=== PATIENT | male | born 1970 | race American Indian/Alaskan Native ===

== ENCOUNTER 2019-10-04 01:12 | Emergency (ER) | payer SELFPAY ==
[2019-10-04 01:51] LABS: Basophils # (Auto) 0.2 K/mm3 (0.0-0.1); Basophils % (Auto) 1.3 % (0.0-1.8); Eosinophils # (Auto) 0.1 K/mm3 (0.0-0.4); Eosinophils % (Auto) 0.8 % (0.0-4.3); Lymphocytes # (Auto) 1.4 K/mm3 (1.2-5.4); Lymphocytes % (Auto) 11.7 % (13.4-35.0); Mean Corpuscular HGB Conc 37 % (32-34); Monocytes # (Auto) 0.8 K/mm3 (0.0-0.8); Monocytes % (Auto) 6.8 % (0.0-7.3); Platelet Count 132 K/mm3 (140-440); Red Blood Count 6.23 M/mm3 (3.65-5.03); Red Cell Distribution Width 15.1 % (13.2-15.2)
[2019-10-04 01:57] LABS: Hematocrit 40.4 % (35.5-45.6); Mean Corpuscular Volume 65 fl (84-94)
[2019-10-04 03:49] LABS: Bilirubin,Urine NEG (Negative); Blood,Urine NEG (Negative); Color,Urine Yellow (Yellow); Mucus,Urine FEW /HPF; Urobilinogen,Urine < 2.0 mg/dL (<2.0)
[2019-10-04 04:12] LABS: Blood Urea Nitrogen 10 mg/dL (9-20); Calcium 9.4 mg/dL (8.4-10.2); Hemolysis Index 252
[2019-10-04 04:24] LABS: BUN/Creatinine Ratio 50
[2019-10-04 04:25] LABS: Alanine Aminotransferase < 5 units/L (7-56)
[2019-10-04 04:28] LABS: Albumin 4.4 g/dL (3.9-5)
[2019-10-04] MEDS ORDERED: MORPHINE 4 MG/1 ML INJ IV ONE ×2 (07:22→10:27)
[2019-10-04] MEDS ORDERED: ONDANSETRON 4 MG/2 ML INJ IV ONE (07:22)
[2019-10-04] MEDS ORDERED: SODIUM CHLORIDE 0.9% 1000 ML 1,000 ML IV ONE (07:22)
--- NOTE | 2019-10-04 07:27 | Emergency Department Report ---
ED Abdominal Pain HPI - General Chief Complaint: Abdominal Pain Stated Complaint: STOMACH PAIN HEADACHE GAS PAIN Source: patient Mode of arrival: Ambulatory Limitations: No Limitations - History of Present Illness Initial Comments: This is a pleasant 32-year-old male who presents the emergency department the chief complaint of 3 days of epigastric abdominal pain that radiates to his back. Patient rates the severity of his pain is a 9 out of 10 describes as sharp and stabbing. He has a history of diabetes, pancreatitis. He reports previous episode of pancreatitis was secondary to alcohol use. He reports this feels very similar to previous episodes of pancreatitis. He currently takes 70/30 insulin and is prescribed metformin but does not take it. He denies any k nown drug allergies. He denies any previous surgeries. He denies any pain in his chest, shortness of breath, nausea, vomiting, diarrhea, melena, hematochezia, fever, chills, night sweats, headache, dizziness, blurry vision or any other associated symptoms. - Related Data Previous Rx's Medication Instructions Recorded Last Taken Type Acetaminophen with Codeine 1 each PO Q6HR #12 tablet 10/04/19 Unknown Rx [Acetaminophen-Codeine #4 TAB] Ondansetron [Zofran Odt] 4 mg PO Q8HR #21 tab.rapdis 10/04/19 Unknown Rx Allergies Allergy/AdvReac Type Severity Reaction Status Date / Time No Known Allergies Allergy Unverified 10/04/19 01:20 ED Review of Systems ROS: Stated complaint: STOMACH PAIN HEADACHE GAS PAIN Other details as noted in HPI Comment: All other systems reviewed and negative Constitutional: denies: chills, fever Eyes: denies: eye pain, eye discharge, vision change ENT: denies: ear pain, throat pain Respiratory: denies: cough, shortness of breath, wheezing Cardiovascular: denies: chest pain, palpitations Endocrine: no symptoms reported Gastrointestinal: as per HPI, abdominal pain. denies: nausea, diarrhea Genitourinary: denies: urgency, dysuria Musculoskeletal: denies: back pain, joint swelling, arthralgia Skin: denies: rash, lesions Neurological: denies: headache, weakness, paresthesias Psychiatric: denies: anxiety, depression Hematological/Lymphatic: denies: easy bleeding, easy bruising ED Past Medical Hx - Past Medical History Previous Medical History?: Yes Hx Diabetes: Yes Additional medical history: pancreatitis - Surgical History Past Surgical History?: No - Social History Smoking Status: Current Some Day Smoker Substance Use Type: Alcohol - Medications Home Medications: Home Medications Medication Instructions Recorded Confirmed Last Taken Type Acetaminophen with Codeine 1 each PO Q6HR #12 tablet 10/04/19 Unknown Rx [Acetaminophen-Codeine #4 TAB] Ondansetron [Zofran Odt] 4 mg PO Q8HR #21 tab.rapdis 10/04/19 Unknown Rx ED Physical Exam - General Limitations: No Limitations General appearance: alert, in no apparent distress - Head Head exam: Present: atraumatic, normocephalic - Eye Eye exam: Present: normal appearance, PERRL, EOMI Pupils: Present: normal accommodation - ENT ENT exam: Present: normal exam, normal orophraynx, mucous membranes dry, mucous membranes moist, normal external ear exam - Neck Neck exam: Present: normal inspection, full ROM. Absent: tenderness, meningismus - Respiratory Respiratory exam: Present: normal lung sounds bilaterally. Absent: respiratory distress, wheezes, rales, rhonchi, stridor - Cardiovascular Cardiovascular Exam: Present: regular rate, normal rhythm, normal heart sounds. Absent: systolic murmur, diastolic murmur, rubs, gallop - GI/Abdominal GI/Abdominal exam: Present: soft, tenderness (Tenderness to the epigastrium, right upper and left upper quadrant, no rebound or guarding), normal bowel sounds. Absent: guarding, rebound - Rectal Rectal exam: Present: deferred - Extremities Exam Extremities exam: Present: normal inspection - Back Exam Back exam: Present: normal inspection - Neurological Exam Neurological exam: Present: alert, oriented X3 - Psychiatric Psychiatric exam: Present: normal affect, normal mood - Skin Skin exam: Present: warm, dry, intact, normal color. Absent: rash ED Course Vital Signs 10/04/19 10/04/19 10/04/19 01:20 07:52 08:49 Temperature 99.2 F Pulse Rate 112 H 95 H 74 Respiratory 18 24 18 Rate Blood Pressure 140/98 Blood Pressure 134/69 136/71 [Right] O2 Sat by Pulse 98 100 100 Oximetry 10/04/19 10/04/19 10/04/19 08:50 09:44 10:44 Temperature Pulse Rate 93 H 93 H Respiratory 18 18 16 Rate Blood Pressure Blood Pressure 139/79 139/76 [Right] O2 Sat by Pulse 96 95 Oximetry - Reevaluation(s) Reevaluation #1: 10/04/19 10:52 Patient's pain improved. Abdominal exam was soft and no rebound or guarding. CT showed mild peripancreatic inflammation. Lipase was elevated but not quite diagnostic for acute pancreatitis. Sodium was also slightly decreased think is likely secondary to hypovolemia due to his nausea and vomiting. The repeat potassium was improved. Patient was given additional fluids. EKG showed no changes of wide complex QRS are peak T waves. I suspect this is likely just an issue of hemolysis. The patient's LFTs were slightly elevated including his alk phos. He did endorse heavy drinking this Wednesday likely resulting in his episode of pancreatitis today. Patient preferred to go home after lengthy conversation recommended clear liquid diet for the next 72 hours, we will give him oral pain medication and nausea medication and recommend he advance his diet slowly after 72 hours. I will give GI follow-up. Patient instructed to return to the ER with any changing or worsening symptoms. He verbalized understanding the diagnosis, treatment plan and follow-up instructions all of his questions were answered. ED Medical Decision Making - Lab Data Result diagrams: 10/04/19 01:30 10/04/19 Unknown Lab Results 10/04/19 10/04/19 10/04/19 Range/Units 01:30 03:04 03:18 WBC 12.1 H (4.5-11.0) K/mm3 RBC 6.23 H (3.65-5.03) M/mm3 Hgb 15.0 (11.8-15.2) gm/dl Hct 40.4 (35.5-45.6) % MCV 65 L (84-94) fl MCH 24 L (28-32) pg MCHC 37 H (32-34) % RDW 15.1 (13.2-15.2) % Plt Count 132 L (140-440) K/mm3 Lymph % (Auto) 11.7 L (13.4-35.0) % Jones % (Auto) 6.8 (0.0-7.3) % Eos % (Auto) 0.8 (0.0-4.3) % Baso % (Auto) 1.3 (0.0-1.8) % Lymph # 1.4 (1.2-5.4) K/mm3 Jones # 0.8 (0.0-0.8) K/mm3 Eos # 0.1 (0.0-0.4) K/mm3 Baso # 0.2 H (0.0-0.1) K/mm3 Seg Neutrophils % 79.4 H (40.0-70.0) % Seg Neutrophils # 9.6 H (1.8-7.7) K/mm3 Sodium 129 L (137-145) mmol/L Potassium 5.3 H (3.6-5.0) mmol/L Chloride 89.7 L (98-107) mmol/L Carbon Dioxide 22 (22-30) mmol/L Anion Gap 23 mmol/L BUN 10 (9-20) mg/dL Creatinine < 0.2 L (0.8-1.5) mg/dL Estimated GFR > 60 ml/min BUN/Creatinine Ratio 50 % Glucose 269 H (75-100) mg/dL Calcium 9.4 (8.4-10.2) mg/dL Total Bilirubin 0.40 (0.1-1.2) mg/dL AST 71 H (5-40) units/L ALT < 5 L (7-56) units/L Alkaline Phosphatase 924 H (35-129) units/L Total Protein 5.1 L (6.3-8.2) g/dL Albumin 4.4 (3.9-5) g/dL Albumin/Globulin Ratio 6.3 % Lipase (13-60) units/L Urine Color Yellow (Yellow) Urine Turbidity Clear (Clear) Urine pH 5.0 (5.0-7.0) Ur Specific Ralph 1.032 H (1.003-1.030) Urine Protein 100 mg/dl (Negative) mg/dL Urine Glucose (UA) >=500 (Negative) mg/dL Urine Ketones 80 (Negative) mg/dL Urine Blood Neg (Negative) Urine Nitrite Neg (Negative) Urine Bilirubin Neg (Negative) Urine Urobilinogen < 2.0 (<2.0) mg/dL Ur Leukocyte Esterase Tr (Negative) Urine WBC (Auto) 2.0 (0.0-6.0) /HPF Urine RBC (Auto) 3.0 (0.0-6.0) /HPF U Epithel Cells (Auto) < 1.0 (0-13.0) /HPF Urine Mucus Few /HPF 10/04/19 Range/Units Unknown WBC (4.5-11.0) K/mm3 RBC (3.65-5.03) M/mm3 Hgb (11.8-15.2) gm/dl Hct (35.5-45.6) % MCV (84-94) fl MCH (28-32) pg MCHC (32-34) % RDW (13.2-15.2) % Plt Count (140-440) K/mm3 Lymph % (Auto) (13.4-35.0) % Jones % (Auto) (0.0-7.3) % Eos % (Auto) (0.0-4.3) % Baso % (Auto) (0.0-1.8) % Lymph # (1.2-5.4) K/mm3 Jones # (0.0-0.8) K/mm3 Eos # (0.0-0.4) K/mm3 Baso # (0.0-0.1) K/mm3 Seg Neutrophils % (40.0-70.0) % Seg Neutrophils # (1.8-7.7) K/mm3 Sodium (137-145) mmol/L Potassium 5.2 H (3.6-5.0) mmol/L Chloride (98-107) mmol/L Carbon Dioxide (22-30) mmol/L Anion Gap mmol/L BUN (9-20) mg/dL Creatinine (0.8-1.5) mg/dL Estimated GFR ml/min BUN/Creatinine Ratio % Glucose (75-100) mg/dL Calcium (8.4-10.2) mg/dL Total Bilirubin (0.1-1.2) mg/dL AST (5-40) units/L ALT (7-56) units/L Alkaline Phosphatase (35-129) units/L Total Protein (6.3-8.2) g/dL Albumin (3.9-5) g/dL Albumin/Globulin Ratio % Lipase 196 H (13-60) units/L Urine Color (Yellow) Urine Turbidity (Clear) Urine pH (5.0-7.0) Ur Specific Ralph (1.003-1.030) Urine Protein (Negative) mg/dL Urine Glucose (UA) (Negative) mg/dL Urine Ketones (Negative) mg/dL Urine Blood (Negative) Urine Nitrite (Negative) Urine Bilirubin (Negative) Urine Urobilinogen (<2.0) mg/dL Ur Leukocyte Esterase (Negative) Urine WBC (Auto) (0.0-6.0) /HPF Urine RBC (Auto) (0.0-6.0) /HPF U Epithel Cells (Auto) (0-13.0) /HPF Urine Mucus /HPF - EKG Data -: EKG Interpreted by Ok EKG shows normal: sinus rhythm Rate: normal - EKG Data When compared to previous EKG there are: previous EKG unavailable 10/04/19 09:03 Normal sinus rhythm rate of [address] or T wave abnormalities, no STEMI, normal axis, normal intervals, no ectopy. - Radiology Data Radiology results: report reviewed Cat Scan Report Signed Patient: THELMA COX JR MR#: [id number] : 1970 Acct:[id number] Age/Sex: 49 / M ADM Date: 10/04/19 Loc: ED Attending Dr: Ordering Physician: SUBHASH AGUIRRE Date of Service: 10/04/19 Procedure(s): CT abdomen pelvis w con Accession Number(s): [id number] cc: SUBHASH AGUIRRE CT abdomen pelvis w con INDICATION: epigastric abdominal pain radiating to back. TECHNIQUE: All CT scans at this location are performed using the following dose modulation technique: Automated exposure control. Helical slices were obtained through the abdomen and pelvis. 100 cc of Omnipaque 300 is administered. COMPARISON: None available. FINDINGS: Abdomen: There is mild dependent atelectasis in the right base. There is mild v mirza pancreatic inflammation around the head of the pancreas suspicious for pancreatitis. There is some inflammation adjacent to the tail of the pancreas and to the splenic flexure of the colon. I suspect that this represents pancreatitis with secondary involvement of the colon. The possibility that this could represent diverticulitis is considered but felt to be less likely. Kidneys and adrenal glands are not acute abnormality. The aorta is normal in diameter. The bowel is unremarkable. Pelvis: The appendix is normal in appearance. There is no obstruction or inflammation in the pelvis. Prostatic calcifications are noted. On review of bone windows, no acute osseous abnormalities are seen. IMPRESSION: 1. There is peripancreatic inflammation consistent with acute pancreatitis. There is some inflammation adjacent to the tail the pancreas in the splenic flexure of the colon. I suspect that this is pancreatitis with secondary involvement of the splenic flexure rather than diverticulitis. There is no abscess. There is no free air. Signer Name: Low Miner MD Signed: 10/04/2019 9:53 AM Workstation Name: [id number] Transcribed By: Dictated By: Low Miner MD Electronically Authenticated By: Low Miner MD Signed Date/Time: 10/04/19 0953 - Medical Decision Making CT showed mild peripancreatic inflammation. Lipase was elevated but not quite diagnostic for acute pancreatitis. Sodium was also slightly decreased think is likely secondary to hypovolemia due to his nausea and vomiting. The repeat pot assium was improved. Patient was given additional fluids. EKG showed no changes of wide complex QRS are peak T waves. I suspect this is likely just an issue of hemolysis. The patient's LFTs were slightly elevated including his alk phos. He did endorse heavy drinking this Wednesday likely resulting in his episode of pancreatitis today. Patient preferred to go home after lengthy conversation recommended clear liquid diet for the next 72 hours, we will give him oral pain medication and nausea medication and recommend he advance his diet slowly after 72 hours. I will give GI follow-up. Patient instructed to return to the ER with any changing or worsening symptoms. He verbalized understanding the diagnosis, treatment plan and follow-up instructions all of his questions were answered. - Differential Diagnosis Acute pancreatitis, choledocholithiasis, cholecystitis, small bowel obstruc Critical care attestation.: If time is entered above; I have spent that time in minutes in the direct care of this critically ill patient, excluding procedure time. ED Disposition Clinical Impression: Acute pancreatitis Qualifiers: Pancreatitis type: alcohol induced Acute pancreatitis complication: unspecified Qualified Code(s): K85.20 - Alcohol induced acute pancreatitis without necrosis or infection Disposition: DC-01 TO HOME OR SELFCARE Is pt being admited?: No Condition: Stable Instructions: Pancreatitis (ED) Prescriptions: RX: Acetaminophen with Codeine [Acetaminophen-Codeine #4 TAB] 1 each PO Q6HR #12 tablet Ondansetron [Zofran Odt] 4 mg PO Q8HR #21 tab.rapdis Referrals: JARROD BORREGO MD [Primary Care Provider] - 3-5 Days [facility] [Provider Group] - 3-5 Days Forms: Work/School Release Form(ED) Time of Disposition: 10:56
--- NOTE | 2019-10-04 09:57 | Cat Scan Report ---
CT abdomen pelvis w con INDICATION: epigastric abdominal pain radiating to back. TECHNIQUE: All CT scans at this location are performed using the following dose modulation technique: Automated exposure control. Helical slices were obtained through the abdomen and pelvis. 100 cc of Omnipaque 30 0 is administered. COMPARISON: None available. FINDINGS: Abdomen: There is mild dependent atelectasis in the right base. There is mild very pancreatic inflamm ation around the head of the pancreas suspicious for pancreatitis. There is some inflammation adjacent to the tail of the pancreas and to the splenic flexure of the col on. I suspect that this represents pancreatitis with secondary involvement of the colon. The possibil ity that this could represent diverticulitis is considered but felt to be less likely. Kidneys and adrenal glands are not acute abnormality. The aorta is normal in diameter. The bowel is u nremarkable. Pelvis: The appendix is normal in appearance. There is no obstruction or inflammation in the pelvis. Prostatic calcifications are noted. On review of bone windows, no acute osseous abnormalities are seen. IMPRESSION: 1. There is peripancreatic inflammation consistent with acute pancreatitis. There is some inflammation adjacent to the tail the pancreas in the splenic flexure of the colon. I s uspect that this is pancreatitis with secondary involvement of the splenic flexure rather than divert iculitis. There is no abscess. There is no free air. Signer Name: Low Miner MD Signed: 10/04/2019 9:53 AM Workstation Name: [id number]
[2019-10-04 10:45] VITALS: BP 139/76
== END 2019-10-04 11:27 | disposition home or self-care (01) ==
LOC: ED 01:12
DX: K85.90 Acute pancreatitis without necrosis or infection, unspecified (principal); R51 Headache; E11.9 Type 2 diabetes mellitus without complications; F17.200 Nicotine dependence, unspecified, uncomplicated; Z79.899 Other long term (current) drug therapy
CPT/HCPCS: 36415; 74177; 80053; 81001; 83690; 84132; 85025; 93005; 93010; 96374; 96375; 96376; 99284; J2270; J2405; J7030; Q9967